=== PATIENT | female | born 1970 | race Caucasian/White ===

== ENCOUNTER → 2018-01-06 09:42 | Outpatient (REF) | payer SELFPAY ==
[2018-01-09 15:59] LABS: Amphetamine/Metha Screen,Urine Negative ng/mL (<1000); Barbiturates Screen,Urine Negative ng/mL (<200); Benzodiazepines Screen,Urine Negative ng/mL (200); Cannabinoid Screen,Urine Negative ng/mL (<50); Cocaine Screen,Urine Negative ng/g (<300); Methadone Screen,Urine Negative ng/mL (<300); Opiate Screen,Urine Negative ng/mL (<300); Phencyclidine Screen,Urine Negative ng/mL (<25)
== END ==
LOC: LAB 09:42
PROVIDERS: Visit Provider Nurse Practitioner Family
DX: E66.3 Overweight (principal)
CPT/HCPCS: 80305

== ENCOUNTER 2018-10-31 23:33 | Observation (INO) ==
[2018-10-31 23:50] LABS: Basophils % 0.6 % (0.1-2.0); Eosinophils # 0.2 K/mm3 (0.0-0.4); Hematocrit 40.3 % (37.0-47.0); Hemoglobin 12.5 g/dL (12.2-16.2); Lymphocytes # 1.3 K/mm3 (0.7-4.5); Lymphocytes % 16.8 % (10-50); Mean Corpuscular HGB Conc 31.1 g/dL (31.8-35.4); Mean Corpuscular Hemoglobin 30.1 pg (27.0-31.2); Mean Platelet Volume 6.9 fl (7.4-10.4); Monocytes # 0.5 K/mm3 (0.1-1.0); Monocytes % 5.9 % (1.7-9.3); Neutrophils # 5.8 K/mm3 (1.8-7.8); Neutrophils % 73.8 % (37.0-80.0); Platelet Count 426 K/mm3 (142-424); Red Blood Count 4.16 M/mm3 (4.20-5.40); Red Cell Distribution Width 13.7 % (11.5-17.5); White Blood Count 7.8 K/mm3 (4.8-10.8)
[2018-11-01 00:21] LABS: Anion Gap 11.7 mEq/L (5-15); Blood Urea Nitrogen 9 mg/dL (7-18); Calcium 9.5 mg/dL (8.5-10.1); Carbon Dioxide 27 mmol/L (21.0-32.0); Chloride 105 mmol/L (98-107); Glucose 131 mg/dL (74-106); Potassium 3.7 mmoL/L (3.5-5.1); Sodium 140 mmol/L (136-145)
--- NOTE | 2018-11-01 00:41 | Emergency Department Note ---
ED Disposition Clinical Impression: Tobacco use, Obesity (BMI 30.0-34.9) Chest pain Qualifiers: Chest pain type: precordial pain Qualified Code(s): R07.2 - Precordial pain Disposition: Admitted as Observation Condition on Discharge: Good Referrals: Provider,Referral, [Primary Care Provider] - - Critical Care Critical Care Time: No Attestation: On 10/31/18, the high probability of a clinically significant, sudden or life threatening deterioration of the following system(s) required my full and direct attention, intervention and personal management. The time I documented below is in addition to time spent performing reported procedures but includes the following listed in this critical care notation. Medical Decision Making - Medical Records Medical records reviewed: Yes: I reviewed the patient's medical records. - Vinicio Inquiry Pt receiving controlled substance: No Vital Signs: 10/31/18 23:34 Temperature 98.8 F Temperature Source Oral Pulse Rate [Right Brachial] 91 H Respiratory Rate 18 Blood Pressure [Right Arm] 158/77 H Blood Pressure Mean [Right Arm] 104 Blood Pressure Source [Right Arm] Automatic Cuff Blood Pressure Position [Right Arm] Sitting 02 Sat by Pulse Oximetry 99 Oxygen Delivery Method Room Air - Lab Data Lab results reviewed: Yes: I reviewed the patient's lab results. Lab Results 10/31/18 23:40: WBC 7.8, RBC 4.16 L, Hgb 12.5, Hct 40.3, MCV 97.0, MCH 30.1, MCHC 31.1 L, RDW 13.7, Plt Count 426 H, MPV 6.9 L, Neut % (Auto) 73.8, Lymph % (Auto) 16.8, [place] % (Auto) 5.9, Eos % (Auto) 3.0, Baso % (Auto) 0.6, Neut # (Auto) 5.8, Lymph # (Auto) 1.3, [place] # (Auto) 0.5, Eos # (Auto) 0.2, Baso # (Auto) 0.0 10/31/18 23:59: Sodium 140, Potassium 3.7, Chloride 105, Carbon Dioxide 27, Anion Gap 11.7, BUN 9, Creatinine 0.83, Estimated Creat Clear 115, Estimated GFR 74, Est GFR ( Amer) 90, Glucose 131 H, Calcium 9.5, Troponin I < 0.02 Result diagrams: 10/31/18 23:40 10/31/18 23:59 Orders (Tests/Meds): ED MEDICATIONS Generic Name Dose Route Start Last Admin Trade Name Freq PRN Reason Stop Dose Admin Sodium Chloride 10 ml 10/31/18 23:39 Saline Flush 10ml Syringe IV 11/30/18 23:38 NEEDED PRN Maintain IV Site Discontinued Medications Generic Name Dose Route Start Last Admin Trade Name Freq PRN Reason Stop Dose Admin Famotidine 20 mg 11/01/18 00:46 Pepcid 20mg/2ml Vial IV 11/01/18 00:47 ONCE ONE Metoclopramide HCl 10 mg 11/01/18 00:46 Reglan 10mg/2ml Vial IVP 11/01/18 00:47 ONCE ONE ORDERS Category Date Time Status XR chest 2V Stat Exams 10/31/18 23:40 Taken ECG Request by /[place] Stat Y 10/31/18 23:40 Ordered - Radiology Data #1 Image(s): Chest Image Reviewed: Yes I reviewed the patient's radiology image Preliminary Findings: Normal/NAD - ECG Data Tracing #1 Normal Sinus Rhythm: Yes Ischemic changes: non-specific ST-T wave changes Chest Pain HPI - General Chief Complaint: Chest Pain Stated Complaint: Chest pain Time Seen by Provider: 10/31/18 23:50 Mode of Arrival: Ambulatory Source of Information: Patient, Relative, Medical Record Limitations: No Limitations Description of Symptoms (Recalled from ER Triage Doc. by RN): Pt states she is having cp x 3 days. She says she thinks it's heartburn. She denies any SOA or new cough. - History of Present Illness HPI narrative: wf with intermittent chest pain over the last 3 days - she has occ sharp pain with rad to jaw and burning pain midsternal - no known heart disease - pt does smoke MD complaint: chest pain indicative of cardiac Onset (ago): day(s) Duration: intermittent Activity at onset: during rest Pain location: epigastric Severity: moderate Risk Factors for CAD: Family Hx of CAD, Smoking Treatments prior to or on arrival for Cardiac Chest Pain: none - EMILE Score for Non-Stemi Age of Patient: 40-49 years old Heart Rate: 90-109 bpm Systolic Blood Pressure: 140-159 mmHg Serum Creatinine: 0.80-1.19 mg/dl CHF [place] Class: I-No CHF Other Risk Factors: None Non-Stemi Risk Score: 71 - Related Data On Oral Contraceptives: No Home Medications Medication Instructions Recorded Confirmed No Known Home Medications 10/31/18 10/31/18 Allergies Allergy/AdvReac Type Severity Reaction Status Date / Time codeine [CODEINE] Allergy Unknown Verified 10/31/18 23:39 [facility] History - Hepatitis A Screen Drug use history?: No High risk sexual behaviors?: No History of sexually transmitted infection?: No Currently employed?: No Childcare worker?: No Do you have indoor plumbing?: Yes Do you have electricity?: Yes Attestation statement:: This patient has been screened for Hepatitis A risk factors. I have reviewed the patient's past medical history: Yes Medical History: Reports:: Depression, Hyperlipidemia - Social History Smoking Status: Current every day smoker Alcohol Intake: never - Psychiatric History Expresses thoughts of harming self/others: None Suicide Plan Description: No Plan Pschychiatric History:: Reports:: Depression ROS Obtained: Yes All systems reviewed & no additional complaints - Constitutional Constitutional: Denies fever(s) - Eyes Eyes: Denies change in vision - ENT Ears, Nose, Mouth, and Throat: Denies sore throat - Cardiovascular Cardiovascular: Reports chest pain, Reports radiating jaw, neck or arm pain, Denies rapid heart rate - Respiratory Respiratory: No cough, No non-productive cough - Gastrointestinal Gastrointestingal: Denies: abdominal pain, dyspepsia, dysphagia, nausea - Genitourinary Female Genitourinary: Denies dysuria, Denies hematuria - Musculoskeletal Musculoskeletal: Denies joint pain, Denies neck pain - Integumentary/Breasts Skin/Breast: Denies rash - Neurologic Neurologic: Denies frequent falls, Denies headache(s), Denies seizure-like activity Physical Exam - General General appearance: alert, in no apparent distress, obese - Head Head exam: atraumatic, normocephalic - Eye Eye exam: Present: PERRL, EOMI. Absent: scleral icterus - ENT ENT exam: Present: mucous membranes dry - Neck Neck exam: Present: trachea midline - Respiratory Respiratory exam: Present: normal lung sounds bilaterally. Absent: respiratory distress - Cardiovascular Cardiovascular exam: Present: regular rate, systolic murmur, +S4 - Abdominal Exam Abdominal exam: Present: soft. Absent: tenderness - Extremities Exam Extremities exam: Present: full ROM. Absent: calf tenderness - Neurological Exam Neurological exam: Present: alert, oriented X3, CN II-XII intact - Psychiatric Psychiatric exam: Present: normal affect - Skin Skin exam: Absent: rash
[2018-11-01 07:03] LABS: Basophils # 0.1 K/mm3 (0-0.2); Basophils % 0.8 % (0.1-2.0); Eosinophils # 0.3 K/mm3 (0.0-0.4); Eosinophils % 4.4 % (0.1-12.0); Hematocrit 36.5 % (37.0-47.0); Hemoglobin 11.4 g/dL (12.2-16.2); Lymphocytes # 1.9 K/mm3 (0.7-4.5); Lymphocytes % 27.2 % (10-50); Mean Corpuscular HGB Conc 31.1 g/dL (31.8-35.4); Mean Corpuscular Hemoglobin 30.5 pg (27.0-31.2); Mean Corpuscular Volume 98.1 fl (81-99); Mean Platelet Volume 6.9 fl (7.4-10.4); Monocytes # 0.5 K/mm3 (0.1-1.0); Monocytes % 6.7 % (1.7-9.3); Neutrophils # 4.3 K/mm3 (1.8-7.8); Neutrophils % 60.8 % (37.0-80.0); Platelet Count 370 K/mm3 (142-424); Red Blood Count 3.72 M/mm3 (4.20-5.40); Red Cell Distribution Width 13.9 % (11.5-17.5)
[2018-11-01 07:21] LABS: Anion Gap 13.2 mEq/L (5-15); Blood Urea Nitrogen 7 mg/dL (7-18); Calcium 9.2 mg/dL (8.5-10.1); Carbon Dioxide 27 mmol/L (21.0-32.0); Chloride 105 mmol/L (98-107); Chol/HDL Ratio 3.1 (1-3.5); Cholesterol 239 mg/dL (140-200); Glucose 115 mg/dL (74-106); HDL Cholesterol 77 mg/dL (29-89); LDL Cholesterol 152 mg/dL (0-130); Potassium 3.2 mmoL/L (3.5-5.1); Sodium 142 mmol/L (136-145); Triglycerides 48 mg/dL (30-200); VLDL Cholesterol 10 mg/dL (0-40)
--- NOTE | 2018-11-01 07:46 | Pharmacy Consult Notes ---
[facility] Pharmacy VTE Monitoring - Patient Demographics Admission date: 11/01/18 Report Date: 11/01/18 Time: 07:45 Allergies/Adverse Reactions: Patient Allergies codeine [CODEINE] Allergy (Unknown, Verified 10/31/18 23:39) Height: 1.7 m Weight: 88.564 kg Patient Problems: Current Active Problems Chest pain (Acute) Tobacco use (Acute) Obesity (BMI 30.0-34.9) (Acute) - VTE Risk Labs: VTE Related Lab Results Hgb 11.4 g/dL (12.2-16.2) L 11/01/18 05:58 Hct 36.5 % (37.0-47.0) L 11/01/18 05:58 Plt Count 370 K/mm3 (142-424) 11/01/18 05:58 BUN 7 mg/dL (7-18) 11/01/18 05:58 Creatinine 0.82 mg/dL (0.55-1.02) 11/01/18 05:58 Estimated Creat Clear 120 mL/min (50-200) 11/01/18 05:58 Was VTE Risk Assessment Performed: Yes VTE Score: 1 VTE Risk Level: Very Low Risk - Prophylaxis VTE Prophylaxis Ordered?: Yes Types of VTE Prophylaxis: TEDS Knee High Location of Applied Device: Bilateral Lower Extremeties - VTE Diagnosis Confirmed Treatment or plan recommended: Continue Current Treatment
--- NOTE | 2018-11-01 10:31 | Consult Report ---
History of Present Illness Consult date: 11/01/18 (2112) Requesting physician: Doron Chicas Consult reason: chest pain Chief complaint: chest pain History of present illness: This is a 48-year-old white female who presented to the hospital with complaints of chest pain. The patient reports having a 3-day history of chest pain that she describes as a burning sensation in the substernal aspect of her chest. At first the patient attributed this to being reflux but it was persistent for 3 days and she states that she could not get it to go away for any significant amount of time. She states this was a burning in the substernal aspect of her chest it radiated up her neck to her left jaw to her left shoulder and into her back. The patient reports that her chest pain was associated with shortness of breath, nausea, diaphoresis and clamminess. The patient states that she was very nauseated but never had any vomiting. The patient reports that those symptoms would occur off and on throughout the entire day constantly. Nothing was helping to resolve the pain. It was a moderate to severe pain. After the third day of symptoms the patient decided to come into the emergency department. She reports that having the nitro has helped improve her symptoms but has not completely resolved her symptoms. She is still currently having some mild burning in her chest at this time. The patient reports that her father of an MN at the age of 69 and her youngest brother has a history of stents and coronary artery disease. The patient does smoke and she does have hyperlipidemia which has been untreated due to lack of insurance. She states that she now currently has insurance and will be able to afford medications. She denies any edema, fever, chills, vomiting, diarrhea, PND, or orthopnea. [facility] History Medical History: Reports:: Depression, Hyperlipidemia Denies:: Cancer, Diabetes Mellitus Type 1, Diabetes Mellitus Type 2, Hypertension, MRSA Have you ever received a pneumonia vaccine?: No Have you received a flu vaccine this season?: No Other Surgeries: Yes: Hysterectomy-Total, Tubal Ligation Amputation: No Fractures: No - *Social History Educational Level: Completed GED/General Educational Development Smoking Status: Current every day smoker Tobacco Type: cigarettes # Packs/Day (cigarettes): 1 Alcohol Intake: never Occupational Status: employed Housing: house Household Members: children Travel in the last 8 weeks: None - Psychiatric History Expresses thoughts of harming self/others: None Suicide Plan Description: No Plan Pschychiatric History:: Reports:: Depression *Family Hx:: Cancer, Diabetes, Heart Attack Meds Home Medications Medication Instructions Recorded Confirmed Type No Known Home Medications 10/31/18 10/31/18 History Allergies Allergy/AdvReac Type Severity Reaction Status Date / Time codeine [CODEINE] Allergy Unknown Verified 10/31/18 23:39 Review of Systems - Review of Systems Review of systems:: pertinent systems reviewed and negative unless documented below - Constitutional Reports fatigue - *Cardiovascular Reports chest pain, Reports chest pain at rest, Reports chest pain with activity, Reports shortness of breath, Reports shortness of breath with activity, Reports radiating jaw, neck or arm pain - *Neurologic Denies frequent falls, Denies headache(s), Denies seizure-like activity Exam Vital signs and Labs for Last 24 Hours: Temp Pulse Resp BP Pulse Ox 98.0 F 64 17 121/68 98 11/01/18 08:12 11/01/18 08:12 11/01/18 08:12 11/01/18 08:12 11/01/18 08:12 Laboratory Results - last 24 hr 10/31/18 23:40: WBC 7.8, RBC 4.16 L, Hgb 12.5, Hct 40.3, MCV 97.0, MCH 30.1, MCHC 31.1 L, RDW 13.7, Plt Count 426 H, MPV 6.9 L, Neut % (Auto) 73.8, Lymph % (Auto) 16.8, [place] % (Auto) 5.9, Eos % (Auto) 3.0, Baso % (Auto) 0.6, Neut # (Auto) 5.8, Lymph # (Auto) 1.3, [place] # (Auto) 0.5, Eos # (Auto) 0.2, Baso # (Auto) 0.0 10/31/18 23:59: Sodium 140, Potassium 3.7, Chloride 105, Carbon Dioxide 27, Anion Gap 11.7, BUN 9, Creatinine 0.83, Estimated Creat Clear 115, Estimated GFR 74, Est GFR ( Amer) 90, Glucose 131 H, Calcium 9.5, Troponin I < 0.02 11/01/18 04:00: Troponin I < 0.02 11/01/18 05:58: WBC 7.0, RBC 3.72 L, Hgb 11.4 L, Hct 36.5 L, MCV 98.1, MCH 30.5, MCHC 31.1 L, RDW 13.9, Plt Count 370, MPV 6.9 L, Neut % (Auto) 60.8, Lymph % (Auto) 27.2, [place] % (Auto) 6.7, Eos % (Auto) 4.4, Baso % (Auto) 0.8, Neut # (Auto) 4.3, Lymph # (Auto) 1.9, [place] # (Auto) 0.5, Eos # (Auto) 0.3, Baso # (Auto) 0.1 11/01/18 05:58: Sodium 142, Potassium 3.2 L, Chloride 105, Carbon Dioxide 27, Anion Gap 13.2, BUN 7, Creatinine 0.82, Estimated Creat Clear 120, Estimated GFR 75, Est GFR ( Amer) 91, Glucose 115 H, Calcium 9.2, Magnesium 1.9, Troponin I < 0.02, Triglycerides 48, Cholesterol 239 H, LDL Cholesterol 152 H, VLDL Cholesterol 10, HDL Cholesterol 77, Cholesterol/HDL Ratio 3.1 I & O for Last 24 hours: Intake & Output 10/29/18 10/30/18 10/31/18 11/01/18 23:59 23:59 23:59 23:59 Intake Total 300 / 300 Balance 300 / 300 Weight 189 lb 195 lb 4 oz Narrative: Her EKG shows sinus rhythm with an old septal [place] pattern and a rate of 89. Her telemetry strip shows sinus rhythm with a rate of 70. - Constitutional no acute distress, obese, cooperative - *Routine HEENT Exam Head: Present: normocephalic, atraumatic Eye: Present: EOMI, PERRL ENT: Present: mucous membranes moist - *Routine Neck Exam Present: supple, full ROM, normal carotid upstroke. Absent: JVD, carotid bruit, lymphadenopathy - *Routine Respiratory Exam Present: CTA bilaterally - *Routine Cardiovascular Exam Present: RRR, Normal S1, Normal S2. Absent: murmur, gallop, rubs - *Routine Abdominal Exam Present: soft, normoactive bowel sounds. Absent: tenderness, distended, rebound - *Routine Extremities Exam Present: full ROM, pulses intact, normal capillary refill. Absent: cyanosis, clubbing, edema - *Routine Skin Exam Present: warm. Absent: erythema, rash - *Routine Neurological Exam Present: alert, oriented X3, CN II-XII intact. Absent: sensory deficit, motor deficit - Routine Psychiatric Exam Present: normal affect, normal thought process. Absent: suicidal ideation Assessment and Plan (1) Typical angina Current visit: Yes Status: Acute Category: Medical Code(s): I20.9 - Angina pectoris, unspecified (2) Hyperlipidemia Current visit: Yes Status: Chronic Category: Medical Code(s): E78.5 - Hyperlipidemia, unspecified (3) Tobacco user Current visit: Yes Status: Chronic Category: Medical Code(s): Z72.0 - Tobacco use (4) Family history of ischemic heart disease Current visit: Yes Status: Chronic Category: Medical Code(s): Z82.49 - Family history of ischemic heart disease and other diseases of the circulatory system (5) Abnormal EKG Current visit: Yes Status: Acute Category: Medical Code(s): R94.31 - Abnormal electrocardiogram [ECG] [EKG] - Assessment and plan all Dx Assessment and Plan for all problems:: Plan: 1. The patient was admitted to the hospital with chest pain. She states that this started 3 days ago and is a burning sensation in the substernal aspect of her chest radiating up her neck into her left shoulder and into the left side of her jaw and into her back. She is short of breath, nauseated, diaphoretic, and clammy. Nitro has helped to improve her pain but she is still having some mild chest discomfort for now. Patient is having typical angina/class IV angina. She is a smoker. She does have family history of ischemic heart disease. Patient likely has suspected coronary artery disease. 2. We will plan to proceed with left cardiac catheterization today to evaluate for coronary artery disease given her typical angina, class IV angina, family history of ischemic heart disease, abnormal EKG and smoking history. The patient has been educated on the risks and benefits of proceeding with left cardiac catheterization. the patient has verbalized understanding is agreeable to proceeding with the procedure. 3. N.p.o. in preparation for left cardiac catheterization. Pre-meds prior to the procedure. 4. Her blood pressure is well controlled. 5. Her LDL goal is less than 100. Her LDL is 152. Will start Lipitor 40 mg p.o. nightly. 6. Will get her started on bisoprolol 5 mg p.o. daily. 7. Will start aspirin 81 mg daily. 8. Echocardiogram to evaluate her LV function. 9. Further recommendations were made pending the patient's response to treatment the results of her left cardiac catheterization later today. Thank you for the opportunity help to spend care of this patient.
--- NOTE | 2018-11-01 14:55 | H&P/Discharge Summary ---
General - General Admission date:: 11/01/18 Discharge date: 11/01/18 *Admission Date: 11/01/18 *Chief complaint: chest pain *History of present illness: this wf was seen in the ed last pm with chest pain which was new and had been occurring over the last 3 days with rad to jaw - she had sig risk factors - tob , obesity and fh and elevated lipids- susanne by my eval was about 3 - she had some relief with ntg - she was admitted for serial enz and card eval [facility] History I have reviewed the patient's past medical history: Yes Medical History: Reports:: Depression, Hyperlipidemia Denies:: Cancer, Diabetes Mellitus Type 1, Diabetes Mellitus Type 2, Hypertension, MRSA Have you ever received a pneumonia vaccine?: No Have you received a flu vaccine this season?: No Other Surgeries: Yes: Hysterectomy-Total, Tubal Ligation Amputation: No Fractures: No - *Social History Educational Level: Completed GED/General Educational Development Smoking Status: Current every day smoker Tobacco Type: cigarettes # Packs/Day (cigarettes): 1 Alcohol Intake: never Occupational Status: employed Housing: house Household Members: children Travel in the last 8 weeks: None - Psychiatric History Expresses thoughts of harming self/others: None Suicide Plan Description: No Plan Pschychiatric History:: Reports:: Depression *Family Hx:: Cancer, Diabetes, Heart Attack Review of Systems - Review of Systems Review of systems:: pertinent systems reviewed and negative unless documented below - Constitutional Denies fatigue - Eyes Denies change in vision - ENT Denies sore throat - *Cardiovascular Reports chest pain, Reports chest pain at rest, Reports radiating jaw, neck or arm pain - *Respiratory Reports shortness of breath, Denies cough - *Gastrointestinal Denies abdominal pain - *Genitourinary Denies blood in urine - *Musculoskeletal Denies joint pain - Integumentary/Breasts Denies rash - *Neurologic Denies frequent falls, Denies headache(s), Denies seizure-like activity - Psychiatric Denies anxiety Exam Vital signs and Labs for Last 24 Hours: Temp Pulse Resp BP Pulse Ox 98.1 F 80 18 115/61 100 11/01/18 14:30 11/01/18 14:30 11/01/18 14:30 11/01/18 14:30 11/01/18 14:30 Laboratory Results - last 24 hr 10/31/18 23:40: WBC 7.8, RBC 4.16 L, Hgb 12.5, Hct 40.3, MCV 97.0, MCH 30.1, MCHC 31.1 L, RDW 13.7, Plt Count 426 H, MPV 6.9 L, Neut % (Auto) 73.8, Lymph % (Auto) 16.8, Wheeler % (Auto) 5.9, Eos % (Auto) 3.0, Baso % (Auto) 0.6, Neut # (Auto) 5.8, Lymph # (Auto) 1.3, Wheeler # (Auto) 0.5, Eos # (Auto) 0.2, Baso # (Auto) 0.0 10/31/18 23:59: Sodium 140, Potassium 3.7, Chloride 105, Carbon Dioxide 27, Anion Gap 11.7, BUN 9, Creatinine 0.83, Estimated Creat Clear 115, Estimated GFR 74, Est GFR ( Amer) 90, Glucose 131 H, Calcium 9.5, Troponin I < 0.02 11/01/18 04:00: Troponin I < 0.02 11/01/18 05:58: WBC 7.0, RBC 3.72 L, Hgb 11.4 L, Hct 36.5 L, MCV 98.1, MCH 30.5, MCHC 31.1 L, RDW 13.9, Plt Count 370, MPV 6.9 L, Neut % (Auto) 60.8, Lymph % (Auto) 27.2, Wheeler % (Auto) 6.7, Eos % (Auto) 4.4, Baso % (Auto) 0.8, Neut # (Auto) 4.3, Lymph # (Auto) 1.9, Wheeler # (Auto) 0.5, Eos # (Auto) 0.3, Baso # (Auto) 0.1 11/01/18 05:58: Sodium 142, Potassium 3.2 L, Chloride 105, Carbon Dioxide 27, Anion Gap 13.2, BUN 7, Creatinine 0.82, Estimated Creat Clear 120, Estimated GFR 75, Est GFR ( Amer) 91, Glucose 115 H, Calcium 9.2, Magnesium 1.9, Troponin I < 0.02, Triglycerides 48, Cholesterol 239 H, LDL Cholesterol 152 H, VLDL Cholesterol 10, HDL Cholesterol 77, Cholesterol/HDL Ratio 3.1 I & O for Last 24 hours: Intake & Output 10/30/18 10/31/18 11/01/18 11/02/18 11:59 11:59 11:59 11:59 Intake Total 300 / 300 480 / 480 Balance 300 / 300 480 / 480 Weight 195 lb 4 oz - Constitutional no acute distress, obese - *Routine HEENT Exam Head: Present: normocephalic Eye: Present: EOMI, PERRL ENT: Present: mucous membranes dry - *Routine Neck Exam Present: supple. Absent: JVD - *Routine Respiratory Exam Present: CTA bilaterally - *Routine Cardiovascular Exam Present: RRR, murmur. Absent: rubs - *Routine Abdominal Exam Present: soft - *Routine Extremities Exam Absent: calf tenderness - *Routine Skin Exam Present: intact - *Routine Neurological Exam Present: alert, oriented X3, CN II-XII intact - Routine Psychiatric Exam Present: normal affect Hospital Course Hospital Course: pt did ok in hospital and monitor and was seen by card - is a 48-year-old white female who presented to the hospital with complaints of chest pain. The patient reports having a 3-day history of chest pain that she describes as a burning sensation in the substernal aspect of her chest. At first the patient attributed this to being reflux but it was persistent for 3 days and she states that she could not get it to go away for any significant amount of time. She states this was a burning in the substernal aspect of her chest it radiated up her neck to her left jaw to her left shoulder and into her back. The patient reports that her chest pain was associated with shortness of breath, nausea, diaphoresis and clamminess. The patient states that she was very nauseated but never had any vomiting. The patient reports that those symptoms would occur off and on throughout the entire day constantly. Nothing was helping to resolve the pain. It was a moderate to severe pain. After the third day of symptoms the patient decided to come into the emergency department. She reports that having the nitro has helped improve her symptoms but has not completely resolved her symptoms. She is still currently having some mild burning in her chest at this time. The patient reports that her father of an OK at the age of 69 and her youngest brother has a history of stents and coronary artery disease. The patient does smoke and she does have hyperlipidemia which has been untreated due to lack of insurance. She states that she now currently has insurance and will be able to afford medications. She denies any edema, fever, chills, vomiting, diarrhea, PND, or orthopnea.he patient was admitted to the hospital with chest pain. She states that this started 3 days ago and is a burning sensation in the substernal aspect of her chest radiating up her neck into her left shoulder and into the left side of her jaw and into her back. She is short of breath, nauseated, diaphoretic, and clammy. Nitro has helped to improve her pain but she is still having some mild chest discomfort for now. Patient is having typical angina/class IV angina. She is a smoker. She does have family history of ischemic heart disease. Patient likely has suspected coronary artery disease. 2. We will plan to proceed with left cardiac catheterization today to evaluate for coronary artery disease given her typical angina, class IV angina, family history of ischemic heart disease, abnormal EKG and smoking history. The patient has been educated on the risks and benefits of proceeding with left cardiac catheterization. the patient has verbalized understanding is agreeable to proceeding with the procedure. 3. N.p.o. in preparation for left cardiac catheterization. Pre-meds prior to the procedure. 4. Her blood pressure is well controlled. 5. Her LDL goal is less than 100. Her LDL is 152. Will start Lipitor 40 mg p.o. nightly. 6. Will get her started on bisoprolol 5 mg p.o. daily. 7. Will start aspirin 81 mg daily. 8. Echocardiogram to evaluate her LV function. 9. Further recommendations were made pending the patient's response to treatment the results of her left cardiac catheterization later today. GIOGRAPHIC RESULTS: 1. The left main artery normal 2. The left anterior descending artery normal 3. The circumflex artery normal 4. The right coronary artery dominant normal 5. The LIRA ventriculogram reveals normal 65% 6. The left ventricular end-diastolic pressure elevated at 22 mmHg IMPRESSION: 1. Normal coronary arteries 2. Normal ejection fraction 3. Moderately elevated LVEDP consistent with diastolic dysfunction PLAN: 1. I would recommend low-dose diuretics in order to decrease LVED pt will follow up as op at this time in about 3 weeks Results Labs on day of discharge: Labs from last 24 hours 11/01/18 11/01/18 11/01/18 05:58 05:58 04:00 WBC 7.0 RBC 3.72 L Hgb 11.4 L Hct 36.5 L MCV 98.1 MCH 30.5 MCHC 31.1 L RDW 13.9 Plt Count 370 MPV 6.9 L Neut % (Auto) 60.8 Lymph % (Auto) 27.2 Wheeler % (Auto) 6.7 Eos % (Auto) 4.4 Baso % (Auto) 0.8 Neut # (Auto) 4.3 Lymph # (Auto) 1.9 Wheeler # (Auto) 0.5 Eos # (Auto) 0.3 Baso # (Auto) 0.1 Sodium 142 Potassium 3.2 L Chloride 105 Carbon Dioxide 27 Anion Gap 13.2 BUN 7 Creatinine 0.82 Estimated Creat Clear 120 Estimated GFR 75 Est GFR ( Amer) 91 Glucose 115 H Calcium 9.2 Magnesium 1.9 Troponin I < 0.02 < 0.02 Triglycerides 48 Cholesterol 239 H LDL Cholesterol 152 H VLDL Cholesterol 10 HDL Cholesterol 77 Cholesterol/HDL Ratio 3.1 10/31/18 10/31/18 23:59 23:40 WBC 7.8 RBC 4.16 L Hgb 12.5 Hct 40.3 MCV 97.0 MCH 30.1 MCHC 31.1 L RDW 13.7 Plt Count 426 H MPV 6.9 L Neut % (Auto) 73.8 Lymph % (Auto) 16.8 Wheeler % (Auto) 5.9 Eos % (Auto) 3.0 Baso % (Auto) 0.6 Neut # (Auto) 5.8 Lymph # (Auto) 1.3 Wheeler # (Auto) 0.5 Eos # (Auto) 0.2 Baso # (Auto) 0.0 Sodium 140 Potassium 3.7 Chloride 105 Carbon Dioxide 27 Anion Gap 11.7 BUN 9 Creatinine 0.83 Estimated Creat Clear 115 Estimated GFR 74 Est GFR ( Amer) 90 Glucose 131 H Calcium 9.5 Magnesium Troponin I < 0.02 Triglycerides Cholesterol LDL Cholesterol VLDL Cholesterol HDL Cholesterol Cholesterol/HDL Ratio DS: Diagnosis - Discharge Diagnosis (1) Typical angina Status: Acute (2) Hyperlipidemia Status: Chronic (3) Tobacco user Status: Chronic (4) Family history of ischemic heart disease Status: Chronic (5) Abnormal EKG Status: Acute (6) Obesity (BMI 30.0-34.9) Status: Acute Discharge Medications - Medications for Discharge Home Medication List at Discharge: New Aspirin [Aspirin 81mg EC Tab] 81 mg PO DAILY #90 tablet. Atorvastatin Calcium [Lipitor 40mg Tablet] 40 mg PO HS #90 tablet Bisoprolol Fumarate [Zebeta 5mg tablet] 5 mg PO DAILY #90 tablet Furosemide [Lasix 20mg tablet] 20 mg PO DAILY #90 tablet Nicotine [Nicoderm 21mg/24hr patch] 21 mg TD DAILYP PRN #30 patch.td24 PRN Reason: Nicotine Cravings Disposition Disposition: Home, Self-Care
--- NOTE | 2018-11-02 11:34 | Cardiology Report ---
PROCEDURE: 2-D M-mode and color Doppler study INDICATIONS FOR THE TEST: Chest pain COPD Heart Murmur Tobacco Smoking+ Palpitations Fatigue Syncope Edema Hypertension Diabetes Mellitus Rheumatic Fever SOB WILSON Obesity Hyperlipidemia Family History HD Additional History PATIENT INFORMATION HEIGHT: 68 WEIGHT:189 GENDER: Female B/P:158/77 2-D/M-MODE INTERPRETATION: 2-D MEASUREMENTS OBSERVED VALUES IN CMS Right Ventricular Dimension (RVDd) 1.7 Interventricular Septum (Thickness)(IVsd) 1.0 Left Ventricular Internal Dimensions(LVIDd) 4.4 Left Ventricular Posterior Wall (Thickness)(LVPWd) 1.0 Aortic Root 3.2 Aortic Cusp Separation 1.9 Left Atrial Dimensions (LAD) 4.0 2D 1. Left atrium is upper limit of normal size, left ventricle is normal size, there is no concentric left ventricular hypertrophy, visually estimated ejection fraction 55% with no regional wall motion abnormality. 2. The right atrium and right ventricle are normal size and contractility. 3. The aortic valve is minimally thickened and fibrosed. 4. The mitral and tricuspid valve are grossly normal. 5. The pulmonic valve is poorly present. 6. No significant pericardial effusion noted. DOPPLER INTERROGATION: Doppler interrogation of the aortic, mitral and tricuspid valvular presence of mild mitral and tricuspid regurgitation, tricuspid regurgitation jet velocity is inadequate for calculation of the right ventricular systolic pressure, diastolic parameters are within normal range. CONCLUSION: 1. Normal left ventricular size, preserved left ventricular systolic function, visually estimated ejection fraction 55% with no regional wall motion abnormality, diastolic parameters are within normal range. 2. Mild mitral and tricuspid regurgitation. 3. No significant pericardial effusion noted.
== END 2018-11-01 17:00 | disposition home or self-care (01) ==
LOC: ER 23:33 → 2ND 23:33
PROVIDERS: ADMIT Emergency Medicine; ATTEND Emergency Medicine
CPT/HCPCS: 36415; 71020; 71046; 80048; 80061; 83735; 84484; 85025; 93005; 93306; 93458; 96372; 96374; 99152; 99284; C1725; C1769; G0378; J1644; Q9967

== ENCOUNTER → 2021-05-25 18:56 | Outpatient (CLI) | payer BC, SELFPAY ==
[2021-05-25 20:58] LABS: Amphetamine/Metha Screen,Urine Negative ng/ml (<1000); Barbiturates Screen,Urine Negative ng/ml (<200)
[2021-05-25 20:59] LABS: Benzodiazepines Screen,Urine Negative ng/ml (<200)
[2021-05-25 21:00] LABS: Cannabinoid Screen,Urine Negative ng/ml (<50)
[2021-05-25 21:01] LABS: Cocaine Screen,Urine Negative ng/ml (<300)
[2021-05-25 21:02] LABS: Methadone Screen,Urine Negative ng/ml (<300); Opiate Screen,Urine Negative ng/ml (<300)
[2021-05-25 21:04] LABS: Phencyclidine Screen,Urine Negative ng/ml (<25)
== END ==
PROVIDERS: Visit Provider Nurse Practitioner Family
DX: Z79.899 Other long term (current) drug therapy (principal)
CPT/HCPCS: 80305

== ENCOUNTER 2021-11-22 15:19 | Emergency (ER) | payer SELFPAY ==
[2021-11-22 16:40] VITALS: BP 148/90; PULSE 82; RESP 18; TEMP 36.8; O2SAT 98; BMI 33.4
--- NOTE | 2021-11-22 17:05 | HMH.EDUTC ---
[facility] [place] Disposition Clinical Impression: Exposure to COVID-19 virus Disposition: Home, Self-Care Condition on Discharge: Good Instructions: DI for COVID-19 (Suspected or Confirmed ), Preventing the Spread of Coronavirus Discharge Instructions Additional Instructions: *Monitor Temp, Over the counter Motrin or Tylenol as directed/as needed Tylenol every 4 hours and Motrin every 6 hours (as long as your family doctor has told you that you can take it) for fever or pain. and straight to ER if unable to lower temp less than 101.0 after medication given *Warm salt water gargles may help to soothe the throat *Throat Lozenges *Warm fluids like tea with honey may help to soothe the throat *Sleep elevated *Humidifier/Vaporizer Follow up IMMEDIATELY for new or worsening symptoms or no Noticeable improvement over the next 48-72 hours. 911 for difficulty breathing or swallowing You were tested for today for COVID19 your test result should be back in the next 24-72 hours, you may check your results on the [facility] [employer] Portal if you have trouble logging on you may call support If you are positive someone from the hospital will be calling you Make sure to take your Vitamins Vit. C Vit D and Zinc if you can take them Referrals: Ras Loredo APRN [Primary Care Provider] - As needed Forms: Work/School Release Time of Disposition: 17:10 Medical Decision Making - Vinicio Inquiry Pt receiving controlled substance: No Vinicio was queried for this patient: No Vital Signs: 11/22/21 16:40 Temperature 98.3 F Temperature Source Oral Pulse Rate [Right Brachial] 82 Respiratory Rate 18 Blood Pressure [Right Arm] 148/90 H Blood Pressure Mean [Right Arm] 109 Blood Pressure Source [Right Arm] Automatic Cuff Blood Pressure Position [Right Arm] Sitting 02 Sat by Pulse Oximetry 98 Oxygen Delivery Method Room Air Orders (Tests/Meds): ORDERS Category Date Time Status Covid-19 Nasal PCR ([facility]) Routine Lab 11/22/21 16:38 Received [facility] [place] HPI - General Stated complaint: covid test Time Seen by Provider: 11/22/21 17:05 Mode of Arrival: Ambulatory Source of Information: Patient Limitations: No Limitations Description of Symptoms (Recalled from Triage Doc. by RN): COVID TEST D/T EXPOSURE. C/O CHILLS HEENT Symptoms (Recalled from RN notes): No Resp Symptoms (Recalled from RN notes): No Skin Symptoms (Recalled from RN notes): No MS Symptoms (Recalled from RN notes): No Functional Status (Recalled from RN notes): WNL - History of Present Illness Provider Complaint: Patient states that her daughter had COVID last week and she took several at home COVID tests and they was positive States that she came in this evening to get a test here to make sure and for work States that she has been having body aches and chills - Related Data Previous Rx's Medication Instructions Recorded phentermine 37.5 mg tablet 37.5 mg PO DAILY #30 tab 05/25/21 Allergies Allergy/AdvReac Type Severity Reaction Status Date / Time codeine [CODEINE] Allergy Unknown Verified 06/09/21 18:33 - Worker's Comp Is this a Worker's Comp case?: No [facility] History - Hepatitis A Screen Drug use history?: No High risk sexual behaviors?: No History of sexually transmitted infection?: No Currently employed?: No Childcare worker?: No Do you have indoor plumbing?: Yes Do you have electricity?: Yes Attestation statement:: This patient has been screened for Hepatitis A risk factors. I have reviewed the patient's past medical history: Yes Medical History: Reports:: Depression, Hyperlipidemia Denies:: Cancer, Diabetes Mellitus Type 1, Diabetes Mellitus Type 2, Hypertension, MRSA Other Surgeries: Yes: Cardiac Catheterization, Hysterectomy-Total, Tubal Ligation Amputation: No Fractures: No - Social History Smoking Status: Current every day smoker Tobacco Type: cigarettes # Packs/Day (cigarettes): 1 Alcohol Intake: never Substance Use Type: denies use Occupati
[2021-11-22 17:10] VITALS: BP 148/90; PULSE 82; RESP 18; TEMP 36.8; O2SAT 98
== END 2021-11-22 17:13 | disposition home or self-care (01) ==
PROVIDERS: Emergency Provider Nurse Practitioner; PCP Nurse Practitioner Family
DX: U07.1 COVID-19 (principal); F17.210 Nicotine dependence, cigarettes, uncomplicated
CPT/HCPCS: 99202; C9803; G0463; U0003; U0005

== ENCOUNTER 2024-07-25 09:46 | Outpatient (CLI) | payer BC, SELFPAY ==
[2024-07-25 19:13] LABS: Alanine Aminotransferase 49 U/L (12-78); Albumin Level 4.2 g/dl (3.5-5.0); Albumin/Globulin Ratio 1.5 (1.1-1.8); Alkaline Phosphatase 85 U/L (38-126); Anion Gap 6.4 mEq/L (5-15); Aspartate Amino Transferase 38 U/L (14-36); Bilirubin,Total 0.5 mg/dl (0.2-1.3); Blood Urea Nitrogen 20 mg/dl (7-17); Calcium 10.1 mg/dl (8.4-10.2); Carbon Dioxide 27 mmol/L (22.0-30.0); Chloride 107 mmol/L (98-107); Chol/HDL Ratio 4.6 (1-3.5); Cholesterol 278 mg/dl (140-200); Estimated Glomerular Filt Rate 52 ml/min (>60); GFR (African American) 63 ML/MIN (>60); Globulin 2.8 g/dL (1.3-3.2); Glucose 136 mg/dl (74-100); HDL Cholesterol 60 mg/dl (40-60); Potassium 4.4 mmoL/L (3.5-5.1); Sodium 136 mmol/L (136-145); Triglycerides 181 mg/dl (30-150); Uric Acid 5.7 mg/dl (2.5-6.2); VLDL Cholesterol 36 mg/dL (0-40)
[2024-07-25 19:25] LABS: Direct LDL Cholesterol 168.39 mg/dL (100-129)
[2024-07-25 19:29] LABS: 25-OH Vitamin D, Total 26.5 ng/mL (30-100)
[2024-07-25 19:45] LABS: Free Thyroxine Index 3.1 ug/dL (5.93-13.13); T4 (Thyroxine) 10.7 ug/dl (5.53-11.0); Triiodothryronine (T3) Uptake 29 % (23.5-40.5)
[2024-07-25 19:58] LABS: Thyroid Stimulating Hormone 1.05 uIU/mL (0.465-4.68)
[2024-07-25 20:01] LABS: Basophils # 0.1 K/mm3 (0-0.2); Basophils % 0.8 % (0.1-2.0); Eosinophils # 0.3 K/mm3 (0.0-0.4); Eosinophils % 2.8 % (0.1-12.0); Hematocrit 42.2 % (37.0-47.0); Hemoglobin 14.3 g/dL (12.2-16.2); Lymphocytes # 1.8 K/mm3 (0.7-4.5); Lymphocytes % 18.8 % (10-50); Mean Corpuscular HGB Conc 33.8 g/dL (31.8-35.4); Mean Corpuscular Hemoglobin 31.7 pg (27.0-31.2); Mean Platelet Volume 8.7 fl (7.4-10.4); Monocytes # 0.6 K/mm3 (0.1-1.0); Monocytes % 6.5 % (1.7-9.3); Neutrophils # 6.8 K/mm3 (1.8-7.8); Neutrophils % 71.1 % (37.0-80.0); Platelet Count 342 K/mm3 (142-424); Red Blood Count 4.49 M/mm3 (4.20-5.40); Red Cell Distribution Width 13.8 % (11.5-17.5); White Blood Count 9.6 K/mm3 (4.8-10.8)
[2024-07-25 20:05] LABS: Vitamin B12 376 pg/mL (239-931)
== END 2024-07-25 23:59 | disposition home or self-care (01) ==
LOC: LAB.DROPOF 07-26 09:46
PROVIDERS: PCP Family Medicine; Visit Provider Family Medicine
DX: R73.03 Prediabetes (principal); R53.83 Other fatigue; F32.A Depression, unspecified; E78.5 Hyperlipidemia, unspecified; M79.671 Pain in right foot; M79.672 Pain in left foot; Z00.00 Encounter for general adult medical examination without abnormal findings; Z72.0 Tobacco use; E66.9 Obesity, unspecified; Z68.33 Body mass index [BMI] 33.0-33.9, adult
CPT/HCPCS: 80050; 80053; 80061; 82306; 82607; 84436; 84443; 84479; 84550; 85025

== ENCOUNTER 2024-09-06 13:47 | Outpatient (CLI) | payer BC, SELFPAY ==
--- NOTE | 2024-09-06 13:55 | CA_ITS ---
APPROVED REPORT EXAM: Comprehensive 2D, Doppler, and color-flow Echocardiogram Grizzly Worker: Laura Lara CRT Ht: 5 ft 9 in Wt: 226lbs BSA: 2.18 BP: 144/102 mmHg Indications: Shortness of Breath 2D Dimensions LA Volume 33.80 mL LA Volume Index 15.50 mL/m2 (M/F) 16-34 M-Mode Dimensions RVDd 2.00 cm (0.9-2.6) LA Diam 3.12 cm (1.9-4.0) LVDd 4.11 cm (3.5-5.7) LVDs 2.36 cm (3.5-5.7) IVSd 1.22 cm (0.6-1.1) PWd 1.18 cm (0.6-1.1) EF (Teich) 74.20% FS 42.60% EDV (Teich) 74.70 mL TAPSE 2.13 (<1.7) ESV (Teich) 19.30 mL LV Diastology E Decel Time 87 (160-240 msec) E/A Ratio 0.72 MED A' 11.60 cm/s LAT A' 13.30 cm/s Aortic Valve AO Peak GR. 7.70 mmHg Mitral Valve MV A Velocity 74.0 (40-130 cm/s) E/A Ratio 0.72 Pulmonary Valve PV Peak Velocity 71.0 (50-150 cm/s) Tricuspid Valve TR P. Velocity 123.00 cm/s RAP Estimate 10.00 mmHg RVSP 16.10 mmHg Left Ventricle The left ventricle is normal size. The left ventricular systolic function is normal. The left ventricular ejection fraction is within the normal range. There is increased LV wall thickness. There is normal LV segmental wall motion. The left ventricular diastolic function is normal. LVEF is 55%. Right Ventricle The right ventricle is normal size. The right ventricular systolic function is normal. Atria The left atrium size is normal. The right atrium size is normal. There is no Doppler evidence of interatrial shunt. Aortic Valve Aortic valve is mildly thickened. There is no aortic valvular stenosis. No aortic regurgitation is present. Mitral Valve The mitral valve is normal in structure. No evidence of mitral valve stenosis. Trace mitral regurgitation. Tricuspid Valve Tricuspid valve is grossly normal in structure and function. Trace tricuspid regurgitation. There is insufficient TR jet to estimate RVSP. Pulmonic Valve The pulmonary valve is normal in structure. Trace pulmonic regurgitation. Great Vessels The aortic root is normal in size. The ascending aorta is not well-visualized. IVC is normal in size and collapses >50% with inspiration. Pericardium There is no pericardial effusion. Other Information Study Quality: Fair Conclusion Normal biventricular systolic function. No significant valvular stenosis or regurgitation. Electronically signed by : Sharda Angulo MD 09/16/2024 23:39:30
--- NOTE | 2024-09-06 14:33 | MM_ITS ---
PROCEDURE INFORMATION: Exam: MG Bilateral Screening 3D Mammography Exam date and time: 09/06/2024 2:30 PM Age: 54 years old Clinical indication: Screening examination TECHNIQUE: Imaging protocol: Bilateral Screening tomosynthesis and 2D mammography including computer-aided detection (CAD) when performed. COMPARISON: No relevant prior studies available. Baseline FINDINGS: MAMMOGRAPHY: Breast composition: The breasts are almost entirely fatty. Mass: 0.5 cm ovoid mass in the middle third of the right upper outer quadrant . The finding may represent a benign intramammary lymph node Architectural distortion: None. Calcifications: No suspicious calcifications. Asymmetric density: None. Skin thickening: None. Axillary adenopathy: None. IMPRESSION: Patient to be recalled for right breast ultrasound for further evaluation of a right breast mass. ASSESSMENT: BI-RADS Category 0: Incomplete- Need Additional Imaging Evaluation
== END 2024-09-06 23:59 | disposition home or self-care (01) ==
LOC: RT 13:48
PROVIDERS: PCP Family Medicine; Visit Provider Family Medicine
DX: I20.89 Other forms of angina pectoris (principal); R94.31 Abnormal electrocardiogram [ECG] [EKG]; Z82.49 Family history of ischemic heart disease and other diseases of the circulatory system; Z12.31 Encounter for screening mammogram for malignant neoplasm of breast
CPT/HCPCS: 77063; 77067; 93306

== ENCOUNTER 2024-09-17 10:42 | Outpatient (CLI) | payer BC, SELFPAY ==
--- NOTE | 2024-09-17 10:43 | US_ITS ---
PROCEDURE INFORMATION: Exam: US Right Breast, Complete Exam date and time: 09/17/2024 10:37 AM Age: 54 years old Clinical indication: Patient recalled for further evaluation of a right breast mass TECHNIQUE: Imaging protocol: Complete ultrasound of all four quadrants of the right breast and the retroareolar regions, including ultrasound of the axilla when performed. COMPARISON: MG MM DIG SCREENING MAMM BI W/CAD 09/06/2024 2:30 PM FINDINGS: ULTRASOUND: Breast ultrasound findings: Sonographic images of the right breast including the retroareolar region, all 4 quadrants and the axilla demonstrates a smoothly marginated ovoid hypoechoic mass in the 11 o'clock axis 2 cm from the nipple most closely corresponding to the mass on mammography. It measures 0.3 x 0.5 x 0.3 cm and likely represents a debris-filled cyst. No other solid or cystic masses in the remainder of the right breast. No architectural distortion or acoustical shadowing. No skin thickening or axillary adenopathy. IMPRESSION: Mass on screening mammography likely corresponds to a minimally debris-filled cyst on sonography. A six-month follow-up diagnostic right mammogram and targeted right breast ultrasound are recommended to ensure stability over time ASSESSMENT: BI-RADS Category 3: Probably benign.
== END 2024-09-17 23:59 | disposition home or self-care (01) ==
LOC: RAD 10:43
PROVIDERS: Visit Provider Family Medicine
DX: N63.11 Unspecified lump in the right breast, upper outer quadrant (principal)
CPT/HCPCS: 76641

== ENCOUNTER 2024-12-28 11:10 | Outpatient (CLI) | payer BC, SELFPAY ==
[2024-12-28 20:03] LABS: Albumin Level 4.4 g/dl (3.5-5.0); Chloride 106 mmol/L (98-107); Potassium 4.5 mmoL/L (3.5-5.1); Sodium 137 mmol/L (136-145)
[2024-12-28 20:05] LABS: Blood Urea Nitrogen 15 mg/dl (7-17); Estimated Glomerular Filt Rate 88 ml/min (>60); GFR (African American) 106 ML/MIN (>60)
[2024-12-28 20:06] LABS: Alanine Aminotransferase 30 U/L (12-78); Albumin/Globulin Ratio 1.8 (1.1-1.8); Alkaline Phosphatase 87 U/L (38-126); Anion Gap 11.5 mEq/L (5-15); Aspartate Amino Transferase 31 U/L (14-36); Bilirubin,Total 0.3 mg/dl (0.2-1.3); Calcium 9.7 mg/dl (8.4-10.2); Carbon Dioxide 24 mmol/L (22.0-30.0); Chol/HDL Ratio 3.6 (1-3.5); Cholesterol 225 mg/dl (140-200); Globulin 2.5 g/dL (1.3-3.2); Glucose 88 mg/dl (74-100); HDL Cholesterol 62 mg/dl (40-60); Total Protein,Serum 6.9 g/dl (6.3-8.2); Triglycerides 110 mg/dl (30-150); VLDL Cholesterol 22 mg/dL (0-40)
[2024-12-28 20:18] LABS: Direct LDL Cholesterol 127.61 mg/dL (100-129)
== END 2024-12-28 23:59 | disposition home or self-care (01) ==
LOC: LAB.DROPOF 12-31 12:11
PROVIDERS: PCP Family Medicine; Visit Provider Family Medicine
DX: Z00.00 Encounter for general adult medical examination without abnormal findings (principal)
CPT/HCPCS: 80053; 80061

== ENCOUNTER 2025-07-26 13:03 | Outpatient (CLI) | payer BC, SELFPAY ==
--- NOTE | 2025-07-26 13:49 | MM_ITS ---
PROCEDURE INFORMATION: Exam: MG Bilateral Diagnostic Breast Tomosynthesis Exam date and time: 07/26/2025 1:35 PM Age: 55 years old Clinical indication: Follow-up of a right breast probably benign finding. TECHNIQUE: Imaging protocol: Bilateral Diagnostic tomosynthesis and 2D mammography including computer-aided detection (CAD) when performed. Unilateral or bilateral exam. COMPARISON: MG MM DIG SCREENING MAMM BI W/CAD 09/06/2024 2:30 PM FINDINGS: MAMMOGRAPHY: Breast composition: There are scattered areas of fibroglandular density. Breast mammogram findings: There is a stable 0.5 cm circumscribed oval mass in the right breast upper outer quadrant at anterior depth, which appears unchanged since 09/06/2024. No new or suspicious mass, distortion, or suspicious calcifications in either breast. IMPRESSION: Mass in the right breast is stable since 09/06/2024. Ultrasound performed on 07/26/2025 also demonstrates a stable debris-filled cyst that correlates to this finding. Six-month follow-up diagnostic right mammogram and targeted right breast ultrasound is recommended to ensure stability over time. ASSESSMENT: BI-RADS Category 3: Probably benign.
--- NOTE | 2025-07-26 14:00 | US_ITS ---
PROCEDURE INFORMATION: Exam: US Right Breast, Complete Exam date and time: 07/26/2025 2:00 PM Age: 55 years old Clinical indication: Short-term sonographic follow-up of a right breast mass TECHNIQUE: Imaging protocol: Complete ultrasound of all four quadrants of the right breast and the retroareolar regions, including ultrasound of the axilla when performed. COMPARISON: US BREAST RT COMPLETE 09/17/2024 10:37 AM FINDINGS: ULTRASOUND: Breast ultrasound findings: Sonographic images of the right 11 o'clock axis 3 cm from the nipple demonstrates a stable hypoechoic mass measuring 0.5 x 0.2 x 0.3 cm most likely reflecting a debris-filled cyst. No other solid or cystic masses in the remainder of the right breast. No axillary adenopathy IMPRESSION: Stable probable debris-filled cyst in the right upper outer quadrant compared to prior sonogram dated 09/17/2024. A six-month follow-up targeted right breast ultrasound is recommended for continued close surveillance ASSESSMENT: BI-RADS Category 3: Probably benign.
== END 2025-07-26 23:59 | disposition home or self-care (01) ==
LOC: RAD 13:04
PROVIDERS: PCP Family Medicine; Visit Provider Family Medicine
DX: N63.11 Unspecified lump in the right breast, upper outer quadrant (principal)
CPT/HCPCS: 76641; 77062; 77066; G0279

== ENCOUNTER 2025-08-16 10:51 | Outpatient (CLI) | payer BC, SELFPAY ==
--- NOTE | 2025-08-16 11:00 | CA_ITS ---
APPROVED REPORT EXAM: Comprehensive 2D, Doppler, and color-flow Echocardiogram Lead Electrical Engineer: LETICIA Sterling, RVS Ht: 5 ft 8 in Wt: 200lbs BSA: 2.04 BP: 166/85 mmHg Indications: CP,Dyspnea, HTN 2D Dimensions Left Atrium 2.90 cm LA Volume 52.90 mL LA Volume Index 25.30 mL/m2 (M/F) 16-34 M-Mode Dimensions RVDd 1.75 cm (0.9-2.6) LA Diam 3.30 cm (1.9-4.0) LVDd 4.78 cm (3.5-5.7) LVDs 3.01 cm (3.5-5.7) IVSd 0.64 cm (0.6-1.1) PWd 0.75 cm (0.6-1.1) EF (Teich) 64.30% EPSs 0.43 cm FS 35.00% EDV (Teich) 98.80 mL ESV (Teich) 35.30 mL LV Diastology E Decel Time 200 (160-240 msec) E/A Ratio 1.07 MED A' 11.30 cm/s LAT A' 11.70 cm/s Aortic Valve JOO Index 0.97 cm2/m2 AoV Peak Ramiro. 156.0 (50-130 cm/s) AO Peak GR. 9.80 mmHg AO Mean GR. 4.90 (<5 mmHg) AO VTI 31.1 (18-25 cm) JOO (VTI) 2.03 (2.5-4.5 cm2) Mitral Valve MV A Velocity 69.0 (40-130 cm/s) E/A Ratio 1.07 Left Ventricle The left ventricle is normal size. Left ventricular systolic function is normal. The left ventricular ejection fraction is within the normal range. There is normal left ventricular wall thickness. There is normal LV segmental wall motion. The left ventricular diastolic function is normal. LVEF is 55% Right Ventricle The right ventricle is normal size. The right ventricular systolic function is normal. Atria The left atrium size is normal. The right atrium size is normal. The interatrial septum is not well visualized. Aortic Valve The aortic valve opens well. There is no hemodynamically significant aortic valvular stenosis. No aortic regurgitation is present. Mitral Valve The mitral valve is normal in structure. No evidence of mitral valve stenosis. Trace mitral regurgitation is present. Tricuspid Valve The tricuspid valve leaflets are thin and pliable. Trace tricuspid regurgitation. There is insufficient TR jet to estimate RVSP. Pulmonic Valve The pulmonary valve is grossly normal in structure. Trace pulmonic valve regurgitation is present. Great Vessels The aortic root is normal in size. IVC is normal in size and collapses >50% with inspiration. Pericardium There is no pericardial effusion. Other Information Study Quality: Adequate Conclusion Normal biventricular systolic function. No significant valvular stenosis or regurgitation. Electronically signed by : Sharda Angulo MD 08/19/2025 00:32:19
== END 2025-08-16 23:59 | disposition home or self-care (01) ==
LOC: RT 10:51
PROVIDERS: PCP Family Medicine; Visit Provider Physician Assistant
DX: I10 Essential (primary) hypertension (principal); R07.9 Chest pain, unspecified; R06.09 Other forms of dyspnea; R53.83 Other fatigue; R40.0 Somnolence; G47.9 Sleep disorder, unspecified
CPT/HCPCS: 93306

== ENCOUNTER 2025-09-26 14:08 | Outpatient (CLI) | payer BC, SELFPAY ==
[2025-09-26 20:31] LABS: Hematocrit 41.1 % (37.0-47.0); Hemoglobin 13.7 g/dL (12.2-16.2); Immature Granulocytes % 0.2 %; Mean Corpuscular HGB Conc 33.3 g/dL (31.8-35.4); Mean Corpuscular Hemoglobin 31.1 pg (27.0-31.2); Mean Corpuscular Volume 93.4 fl (81-99); Nucleated Red Blood Cells % 0 %; Platelet Count 333 K/mm3 (142-424); Red Blood Count 4.40 M/mm3 (4.20-5.40); Red Cell Distribution Width-SD 44.4 fL; White Blood Count 8.5 K/mm3 (4.8-10.8)
[2025-09-26 21:02] LABS: Hemoglobin A1C 5.2 % (4.0-6.0)
[2025-09-26 21:07] LABS: Albumin Level 4.6 g/dl (3.5-5.0); Chloride 103 mmol/L (98-107); Potassium 4.7 mmoL/L (3.5-5.1); Sodium 138 mmol/L (136-145)
[2025-09-26 21:09] LABS: Blood Urea Nitrogen 10 mg/dl (7-17); Creatinine,Serum 0.60 mg/dl (0.52-1.04); Estimated Glomerular Filt Rate 105 ml/min (>60); GFR (African American) 127 ML/MIN (>60)
[2025-09-26 21:10] LABS: Alanine Aminotransferase 30 U/L (12-78); Albumin/Globulin Ratio 1.7 (1.1-1.8); Alkaline Phosphatase 85 U/L (38-126); Anion Gap 16.7 mEq/L (5-15); Aspartate Amino Transferase 30 U/L (14-36); Bilirubin,Total 0.3 mg/dl (0.2-1.3); Calcium 9.5 mg/dl (8.4-10.2); Carbon Dioxide 23 mmol/L (22.0-30.0); Globulin 2.7 g/dL (1.3-3.2); Glucose 82 mg/dl (74-100); Total Protein,Serum 7.3 g/dl (6.3-8.2)
[2025-09-26 21:22] LABS: 25-OH Vitamin D, Total 27.3 ng/mL (30-100)
[2025-09-26 21:41] LABS: Thyroid Stimulating Hormone 0.61 uIU/mL (0.465-4.68)
== END 2025-09-26 23:59 | disposition home or self-care (01) ==
LOC: LAB.DROPOF 09-27 12:37
PROVIDERS: PCP Family Medicine; Visit Provider Family Medicine
DX: E55.9 Vitamin D deficiency, unspecified (principal); I10 Essential (primary) hypertension; R73.03 Prediabetes; E66.811 Obesity, class 1
CPT/HCPCS: 80053; 82306; 83036; 84443; 85025